=== PATIENT | male | born 1960 | race Caucasian/White ===

== ENCOUNTER 2017-09-03 08:45 | Emergency (ER) | payer OTHER ==
[~2017-09-03] VITALS: Ht 167.6 cm; Wt 110.4 kg
[~2017-09-03 08:45] MED LIST: AMLODIPINE BESYL5 MG PO; APRESOLINE25 MG PO; BACTRIM,SEPT1 TABLET PO; HYDROCODON-ACE1 EAC7 PO; KEFLEX500 MG PO; LEVAQUIN750 MG PO; VITAMIN D31000 UNIT PO
[2017-09-03] MEDS ORDERED: PERCOCET 5/31 TABLET PO (11:38)
[2017-09-03] MEDS ORDERED: MEDROL DOSEPAK4 MG PO (11:38)
[2017-09-03 11:57] VITALS: BP 147/88
== END 2017-09-03 12:28 | disposition home or self-care (01) ==
LOC: EME 08:45
DX: M54.12 Radiculopathy, cervical region (principal); M50.323 Other cervical disc degeneration at C6-C7 level; Z93.3 Colostomy status
CPT/HCPCS: 72141; 99281; 99284

== ENCOUNTER 2017-11-12 11:54 | Observation (INO) | payer OTHER ==
[~2017-11-12] VITALS: Ht 177.8 cm; Wt 102.2 kg
[~2017-11-12 11:54] MED LIST changes: +MEDROL DOSEPAK4 MG PO; +PERCOCET 5/31 TABLET PO; -VITAMIN D31000 UNIT PO; +VITAMIN D35000 UNIT PO
[2017-11-12 12:33] LABS: BASOPHIL (%) 0.8 % (0-1); BASOPHIL COUNT 0.1 K/uL (0-0.1); EOSINOPHIL (%) 0.8 % (0-5); EOSINOPHIL COUNT 0.1 K/uL (0-0.3); HEMATOCRIT 47.1 % (38.0-50.0); HEMOGLOBIN 16.8 G/DL (12.5-16.6); IMMATURE GRANULOCYTE (%) 0.3 % (0.0-0.7); LYMPHOCYTE (%) 21.4 % (15-42); LYMPHOCYTE COUNT 1.3 K/uL (1.0-2.8); MCH 29.9 PG (29.0-34.0); MCHC 35.7 G/DL (30.0-36.0); MONOCYTE (%) 8.3 % (3-12); MONOCYTE COUNT 0.5 K/uL (0-0.8); NEUTROPHIL (%) 68.4 % (45-76); NEUTROPHIL COUNT 4.3 K/uL (1.8-6.4); PLATELET COUNT 242 K/uL (156-360); RBC DIS.WIDTH-SD 39.6 % (39-53); RED BLOOD COUNT 5.61 M/uL (4.00-5.50); WHITE BLOOD COUNT 6.3 K/uL (4.1-10.2)
[2017-11-12 12:42] LABS: CHLORIDE 106 mEq/L (99-109); POTASSIUM 3.4 mEq/L (3.7-5.4)
[2017-11-12 12:43] LABS: SODIUM 141 mEq/L (136-147)
[2017-11-12 12:45] LABS: GLUCOSE 104 mg/dL (70-99); TOTAL PROTEIN 6.8 g/dL (6.4-8.3)
[2017-11-12 12:46] LABS: TOTAL BILIRUBIN 0.7 mg/dL (0.0-1.0)
[2017-11-12 12:48] LABS: ALKALINE PHOSPHATASE 79 IU/L (3-129); CREATININE 0.8 mg/dL (0.6-1.3); GFR ESTIMATE (CALCULATED) > 59 mL/min/ (58.99-99999)
[2017-11-12 12:49] LABS: UREA NITROGEN (BUN) 14 mg/dL (9-23)
[2017-11-12 12:50] LABS: AST (GOT) 14 IU/L (2-34)
[2017-11-12 12:51] LABS: ALT (GPT) 15 IU/L (3-49)
[2017-11-12 14:31] LABS: APPEARANCE SL.HAZY ((CLEAR)); BILIRUBIN NEGATIVE; BLOOD SMALL; COLOR YELLOW ((YELLOW)); GLUCOSE (STRIP) NEGATIVE; KETONES NEGATIVE; LEUKOCYTES NEGATIVE; NITRITE NEGATIVE; PROTEIN (STRIP) NEGATIVE; SPECIFIC GRAVITY 1.027 (1.000-1.030); UROBILINOGEN 0.2 MG/DL (0.2-1.0)
[2017-11-12 14:35] LABS: BACTERIA NONE SEEN /HPF; CALCIUM OXALATE CRYSTALS 1+ /HPF; EPITHELIAL CELLS NONE SEEN /HPF; MUCUS TRACE /LPF; RED BLOOD CELLS 0-5 /HPF (0-5); UCUL ADDED? NO; WHITE BLOOD CELLS 0-5 /HPF (0-5)
[2017-11-12] MEDS ORDERED: METHOCARBAMOL500 MG PO (17:52)
[2017-11-12 20:40] LABS: TROP-I INTERPRETATION NEGATIVE; TROPONIN-I 0.01 ng/mL (0.0-0.30)
[2017-11-13 04:04] LABS: BASOPHIL (%) 0.6 % (0-1); EOSINOPHIL (%) 0.8 % (0-5); EOSINOPHIL COUNT 0.1 K/uL (0-0.3); HEMATOCRIT 47.8 % (38.0-50.0); HEMOGLOBIN 16.8 G/DL (12.5-16.6); IMMATURE GRANULOCYTE (%) 0.3 % (0.0-0.7); LYMPHOCYTE (%) 21.8 % (15-42); LYMPHOCYTE COUNT 1.4 K/uL (1.0-2.8); MCH 29.6 PG (29.0-34.0); MCHC 35.1 G/DL (30.0-36.0); MCV 84.2 FL (86-99); MONOCYTE COUNT 0.5 K/uL (0-0.8); NEUTROPHIL (%) 69.5 % (45-76); NEUTROPHIL COUNT 4.6 K/uL (1.8-6.4); PLATELET COUNT 261 K/uL (156-360); RBC DIS.WIDTH-SD 40.2 % (39-53); RED BLOOD COUNT 5.68 M/uL (4.00-5.50); WHITE BLOOD COUNT 6.6 K/uL (4.1-10.2)
[2017-11-13 04:16] LABS: ALBUMIN 4.1 g/dL (3.2-4.8); CHLORIDE 108 mEq/L (99-109); POTASSIUM 3.3 mEq/L (3.7-5.4); SODIUM 142 mEq/L (136-147)
[2017-11-13 04:18] LABS: TOTAL PROTEIN 6.6 g/dL (6.4-8.3)
[2017-11-13 04:20] LABS: TOTAL BILIRUBIN 0.8 mg/dL (0.0-1.0)
[2017-11-13 04:21] LABS: GLUCOSE 189 mg/dL (70-99)
[2017-11-13 04:22] LABS: ALKALINE PHOSPHATASE 79 IU/L (3-129); CREATININE 0.9 mg/dL (0.6-1.3); GFR ESTIMATE (CALCULATED) > 59 mL/min/ (58.99-99999)
[2017-11-13 04:23] LABS: UREA NITROGEN (BUN) 17 mg/dL (9-23)
[2017-11-13 04:24] LABS: AST (GOT) 14 IU/L (2-34)
[2017-11-13 04:25] LABS: ALT (GPT) 14 IU/L (3-49)
[2017-11-13 04:27] LABS: TROP-I INTERPRETATION NEGATIVE; TROPONIN-I 0.02 ng/mL (0.0-0.30)
[2017-11-13 09:50] VITALS: BP 184/77
[2017-11-13 10:11] VITALS: BP 134/77
[2017-11-13 12:34] LABS: TROP-I INTERPRETATION NEGATIVE; TROPONIN-I < 0.01 ng/mL (0.0-0.30)
[2017-11-13 16:20] VITALS: BP 149/85
[2017-11-13 20:28] LABS: TROP-I INTERPRETATION NEGATIVE; TROPONIN-I < 0.01 ng/mL (0.0-0.30)
[2017-11-13 21:13] VITALS: BP 144/81
[2017-11-13 23:51] VITALS: BP 144/89
[2017-11-14 04:10] VITALS: BP 168/88
[2017-11-14 04:50] VITALS: BP 142/76
[2017-11-14 05:35] LABS: CHLORIDE 104 MEQ/L (99-109); CREATININE 0.8 MG/DL (0.6-1.3); GFR ESTIMATE (CALCULATED) > 59 mL/min/ (58.99-99999); GLUCOSE 146 mg/dL (70-99); POTASSIUM 3.8 MEQ/L (3.7-5.4); SODIUM 137 MEQ/L (136-147); UREA NITROGEN (BUN) 23 mg/dL (9-23)
[2017-11-14 07:38] VITALS: BP 160/82
[2017-11-14 11:47] VITALS: BP 151/74
[2017-11-14 15:25] VITALS: BP 144/73
[2017-11-14 19:00] VITALS: BP 140/73
[2017-11-15 00:58] VITALS: BP 141/77
[2017-11-15 04:36] VITALS: BP 144/76
[2017-11-15 07:43] VITALS: BP 163/80
[2017-11-15] MEDS ORDERED: DEXAMETHASONE4 MG PO (09:11)
[2017-11-15 12:12] VITALS: BP 140/80
[2017-11-15 16:15] VITALS: BP 167/78
== END 2017-11-15 16:45 | disposition short-term general hospital (02) ==
LOC: EME 11:54 → 5WEST 18:50 → EDOF 18:50 → ENRESERV 20:08 → 5WEST 11-13 09:33
PROVIDERS: Emergency Medicine; Internal Medicine
DX: I63.9 Cerebral infarction, unspecified (principal); D49.6 Neoplasm of unspecified behavior of brain; G93.5 Compression of brain; Z85.841 Personal history of malignant neoplasm of brain; E87.6 Hypokalemia; I10 Essential (primary) hypertension; E78.5 Hyperlipidemia, unspecified; N20.0 Calculus of kidney; K57.90 Diverticulosis of intestine, part unspecified, without perforation or abscess without bleeding; Z93.3 Colostomy status; K43.5 Parastomal hernia without obstruction or gangrene; M50.90 Cervical disc disorder, unspecified, unspecified cervical region; M19.019 Primary osteoarthritis, unspecified shoulder; E55.9 Vitamin D deficiency, unspecified; Z86.010 Personal history of colon polyps
CPT/HCPCS: 70450; 70496; 70553; 72125; 74177; 80048; 80053; 81003; 84484; 85025; 99281; 99285; G0378; J3480; J7040; J8540